=== PATIENT | female | born 1960 | race American Indian/Alaskan Native ===

== ENCOUNTER 2023-07-19 14:20 | Inpatient (IN) | payer MEDICAID ==
[~2023-07-19] VITALS: Ht 162.6 cm; Wt 92.0 kg
[2023-07-19] MEDS: normal saline 1000ML IV soln IV ONE (14:40)
[2023-07-19] MEDS: diltiazem 5mg/ml 5ml inj. IV ONE ×2 (15:26→16:04)
[2023-07-19] MEDS: metoclopramide 5 mg/ml inj IV ONE (15:40)
[2023-07-19] MEDS: normal saline 500ml IV soln 500 ML IV ONE (15:48)
[2023-07-19] MEDS: dextrose 50%-water 50ml dispensing syringe IV ONE (16:02)
[2023-07-19] MEDS: diltiazem-NS 100mg/100ml 100 ML IV SCH (16:03)
[2023-07-19 17:00] LABS: BASOPHILS % (AUTO) 0.3 % (0-1); EOSINOPHILS % (AUTO) 0.1 % (0-6); HEMATOCRIT 33.2 % (35.0-45.0); HEMOGLOBIN 10.7 g/dl (12.0-16.0); LYMPHOCYTES # (AUTO) 1.4 X10'3 (1.1-4.8); MEAN CORPUSCULAR HEMOGLOBIN 31.7 PG (27.0-31.0); MEAN CORPUSCULAR HGB CONC 32.3 g/dL (33.0-36.5); MEAN CORPUSCULAR VOLUME 98.3 FL (78-98); MEAN PLATELET VOLUME 7.9 FL (7.4-10.4); MONOCYTES # (AUTO) 0.3 X10'3 (0-0.9); MONOCYTES % (AUTO) 4.8 % (2-12); NEUTROPHILS # (AUTO) 4.1 X10'3 (1.8-7.7); NEUTROPHILS % (AUTO) 70.8 % (42-75); PLATELET COUNT 143 X10'3 (140-440); RED BLOOD COUNT 3.38 X10'6 (4.20-5.60); RED CELL DISTRIBUTION WIDTH 17.6 % (11.5-14.5); WHITE BLOOD COUNT 5.7 X10'3 (4.5-11.0)
[2023-07-19 17:18] LABS: ANION GAP 11 (8-16); BLOOD UREA NITROGEN 43 MG/DL (7-18); BUN/CREATININE RATIO 17.1 (10.0-20.0); CALCIUM 7.5 MG/DL (8.5-10.1); CHLORIDE 116 MMOL/L (99-107); CREATININE 2.51 MG/DL (0.40-0.90); GLUCOSE 118 MG/DL (70-104); POTASSIUM 3.1 MMOL/L (3.5-5.1); SODIUM 149 MMOL/L (135-145); TOTAL CARBON DIOXIDE 22.1 MMOL/L (24-32); eCRCL 20 ML/MIN; eGFR 19 ML/MIN
[2023-07-19 19:06] LABS: PRO BRAIN NATRIURETIC PEPTIDE > 30000 PG/ML (0-125)
[2023-07-19] MEDS: normal saline 1000ML IV soln IVB ONE (19:17)
[2023-07-19] MEDS: dextrose 5%-1/2 normal saline 1,000 ML IV ONE (19:19)
[2023-07-19] MEDS ORDERED: mag hydrox/Alum hydrox/simeth 30ml oral suspension PO PRN (19:25)
[2023-07-19] MEDS: furosemide 10 MG/1 ML 10ml inj IV ONE (19:25)
[2023-07-19] MEDS ORDERED: magnesium hydroxide 30ml (MOM) UD suspension PO PRN (19:25)
[2023-07-19] MEDS ORDERED: acetaminophen 325mg tablet PO PRN ×2 (19:25)
[2023-07-19] MEDS: docusate sod 100mg capsule PO SCH (20:00)
[2023-07-19] MEDS: vancomycin/NS 1 GM ADD-VANTAGE 250 ML IV ONE (20:45)
[2023-07-19] MEDS: Dextrose 10%-water IV solution 1,000 ML IV SCH (21:06)
[2023-07-19 21:20] LABS: BILIRUBIN,URINE SMALL (Neg); CLARITY,URINE CLOUDY (Clear); COLOR,URINE YELLOW (Yellow); GLUCOSE, URINE NEGATIVE (Neg); KETONES,URINE TRACE mg/dl (Neg); LEUKOCYTE ESTERASE ,URINE LARGE (Neg); NITRITES, URINE NEGATIVE (Neg); OCCULT BLOOD,URINE MODERATE (Neg); PROTEIN,URINE 100 mg/dl (Neg); UROBILINOGEN,URINE 0.2 E.U/dL (0.2-1.0)
[2023-07-19] MEDS: VANCOMYCIN 750MG IV in NS 250 ML IV ONE (21:20)
[2023-07-19 21:26] LABS: UA COLLECTION TYPE FOLEY CATH
[2023-07-19 21:27] LABS: BACTERIA,URINE 4+ /HPF (Neg); MUCUS STRANDS FEW /LPF (Neg); RBC,URINE 50-100 /HPF (0-2); SQUAMOUS EPITHELIAL CELL,UR FEW /LPF (FEW); WBC,URINE TNTC /HPF (0-4)
[2023-07-19] MEDS: morphine 2 MG/ML inj. syringe IV PRN (21:36)
[2023-07-19] MEDS: ondansetron/PF 4mg/2ml inj IV PRN (23:56)
[2023-07-20] MEDS: potassium Cl 40MEQ/1/2NS 520ml 520 ML IV ONE (02:25)
[2023-07-20] MEDS: metoclopramide 5 mg/ml inj IV ONE (03:06)
[2023-07-20] MEDS: diatr meglu/diatrizoate 30ml oral sol.-(3 dose) bottle PO SCH (03:37)
[2023-07-20] MEDS: pantoprazole 40 MG vial IV SCH (07:30)
[2023-07-20 08:00] VITALS: RESP 18; O2SAT 97
[2023-07-20] MEDS: dexamethasone 4mg/ml inj IV SCH (08:00)
[2023-07-20] MEDS: meropenem inj 500 MG in normal saline 100ml IV soln 100 ML IV SCH (08:00)
[2023-07-20 08:18] LABS: BASOPHILS % (AUTO) 0.3 % (0-1); EOSINOPHILS % (AUTO) 0.2 % (0-6); HEMATOCRIT 30.2 % (35.0-45.0); HEMOGLOBIN 9.8 g/dl (12.0-16.0); LYMPHOCYTES % (AUTO) 30.3 % (21-51); MEAN CORPUSCULAR HEMOGLOBIN 31.7 PG (27.0-31.0); MEAN CORPUSCULAR HGB CONC 32.4 g/dL (33.0-36.5); MEAN PLATELET VOLUME 7.8 FL (7.4-10.4); MONOCYTES # (AUTO) 0.4 X10'3 (0-0.9); MONOCYTES % (AUTO) 6.1 % (2-12); NEUTROPHILS # (AUTO) 4.1 X10'3 (1.8-7.7); NEUTROPHILS % (AUTO) 63.1 % (42-75); PLATELET COUNT 134 X10'3 (140-440); RED BLOOD COUNT 3.09 X10'6 (4.20-5.60); RED CELL DISTRIBUTION WIDTH 17.5 % (11.5-14.5); WHITE BLOOD COUNT 6.6 X10'3 (4.5-11.0)
[2023-07-20 09:05] LABS: ANION GAP 12 (8-16); BLOOD UREA NITROGEN 42 MG/DL (7-18); BUN/CREATININE RATIO 16.5 (10.0-20.0); CALCIUM 7.3 MG/DL (8.5-10.1); CHLORIDE 115 MMOL/L (99-107); CREATININE 2.55 MG/DL (0.40-0.90); GLUCOSE 126 MG/DL (70-104); POTASSIUM 3.1 MMOL/L (3.5-5.1); SODIUM 145 MMOL/L (135-145); TOTAL CARBON DIOXIDE 18.5 MMOL/L (24-32); eCRCL 19 ML/MIN; eGFR 19 ML/MIN
[2023-07-20 09:40] VITALS: BP 110/50; PULSE 110; RESP 17; TEMP 98.1; O2SAT 97
[2023-07-20] MEDS: dextrose 5%-normal saline 1,000 ML IV SCH (11:55)
[2023-07-20] MEDS ORDERED: magnesium Cl slow-release 64mg tablet PO PRN (14:30)
[2023-07-20] MEDS ORDERED: potassium Cl 20 mEq SR tablet PO PRN (14:30)
[2023-07-20 15:00] VITALS: BP 102/53; PULSE 114; RESP 12; TEMP 98.6; O2SAT 98
[2023-07-20] MEDS: morphine 2 MG/ML inj. syringe IV PRN (15:28)
[2023-07-20 16:19] LABS: HEMOGLOBIN A1C 4.9 % (4.5-6.2)
[2023-07-20 18:00] VITALS: BP 106/66; PULSE 88; RESP 15; TEMP 98.4; O2SAT 96
[2023-07-20] MEDS: K and/or MAG REPLACEMENT MC SCH (20:00)
[2023-07-20] MEDS: furosemide 20 MG/2 ML vial IV SCH (20:52)
[2023-07-20] MEDS: vancomycin inj 500 MG in normal saline 100ml IV soln 100 ML IV SCH (21:44)
[2023-07-20 22:00] VITALS: BP 122/53; PULSE 91; RESP 11; TEMP 98.4; O2SAT 96
[2023-07-21] VITALS (7 sets, daily range): BP systolic 85–112; BP diastolic 45–58; PULSE 89–114; RESP 16–18; TEMP 97.2–98.2; O2SAT 93–99
[2023-07-21 05:04] LABS: LYMPHOCYTES # (AUTO) 1.4 X10'3 (1.1-4.8); MONOCYTES # (AUTO) 0.3 X10'3 (0-0.9); MONOCYTES % (AUTO) 5.7 % (2-12); RED BLOOD COUNT 2.76 X10'6 (4.20-5.60); WHITE BLOOD COUNT 5.6 X10'3 (4.5-11.0)
[2023-07-21 05:06] LABS: BASOPHILS % (AUTO) 0.2 % (0-1); EOSINOPHILS % (AUTO) 0.1 % (0-6); HEMATOCRIT 26.8 % (35.0-45.0); HEMOGLOBIN 8.8 g/dl (12.0-16.0); LYMPHOCYTES % (AUTO) 25.6 % (21-51); MEAN CORPUSCULAR HEMOGLOBIN 31.7 PG (27.0-31.0); MEAN CORPUSCULAR HGB CONC 32.7 g/dL (33.0-36.5); MEAN CORPUSCULAR VOLUME 97.1 FL (78-98); MEAN PLATELET VOLUME 7.9 FL (7.4-10.4); NEUTROPHILS # (AUTO) 3.8 X10'3 (1.8-7.7); NEUTROPHILS % (AUTO) 68.4 % (42-75); PLATELET COUNT 127 X10'3 (140-440); RED CELL DISTRIBUTION WIDTH 17.7 % (11.5-14.5)
[2023-07-21 05:39] LABS: ALBUMIN 0.8 G/DL (3.4-5.0); ANION GAP 11 (8-16); BLOOD UREA NITROGEN 41 MG/DL (7-18); BUN/CREATININE RATIO 15.8 (10.0-20.0); CALCIUM 6.6 MG/DL (8.5-10.1); CHLORIDE 114 MMOL/L (99-107); CREATININE 2.59 MG/DL (0.40-0.90); GLUCOSE 88 MG/DL (70-104); MAGNESIUM 1.1 MG/DL (1.5-2.4); SODIUM 146 MMOL/L (135-145); TOTAL CARBON DIOXIDE 21.2 MMOL/L (24-32); eCRCL 19 ML/MIN; eGFR 19 ML/MIN
[2023-07-21 05:47] LABS: POTASSIUM 2.8 MMOL/L (3.5-5.1)
[2023-07-21] MEDS: pantoprazole 40mg Tablet.DR PO SCH (07:30)
[2023-07-21] MEDS: potassium Cl 40MEQ/1/2NS 520ml 520 ML IV PRN (08:21)
[2023-07-21] MEDS ORDERED: normal saline 1000ml 1,000 ML IV SCH (09:05)
[2023-07-21 09:43] LABS: PLATELET ESTIMATE DECREASED; TOTAL CELLS COUNTED 100; TOXIC GRANULATION 1+
[2023-07-21 09:46] LABS: ANISOCYTOSIS 1+; ELLIPTOCYTES FEW; SMUDGE CELLS 1+; STOMATOCYTES FEW; TARGET CELLS FEW; TEAR DROP CELLS FEW
[2023-07-21] MEDS ORDERED: metoclopramide 5 mg/ml inj IV SCH (10:25)
[2023-07-21] MEDS: metoclopramide 5 mg/ml inj IV SCH (13:28)
[2023-07-21] MEDS: magnesium 4gm in 100ml NS 100 ML IV PRN (13:42)
[2023-07-21] MEDS ORDERED: PANT40TA54 PO (14:20)
[2023-07-21] MEDS ORDERED: GABA-530 PO (14:20)
[2023-07-21] MEDS ORDERED: BUME1TAB8 PO (14:20)
[2023-07-21] MEDS ORDERED: HYDR-3964 PO (14:20)
[2023-07-21] MEDS ORDERED: ROSU10TA28 PO (14:20)
[2023-07-21] MEDS ORDERED: MIDO5TAB4 PO (14:20)
[2023-07-21] MEDS ORDERED: ALLO100T PO (14:20)
[2023-07-21] MEDS ORDERED: SERT-434 PO (14:20)
[2023-07-21] MEDS ORDERED: SUCR1TAB PO (14:20)
[2023-07-21] MEDS ORDERED: HYDR200T73 PO (14:20)
[2023-07-21] MEDS ORDERED: METO5TAB98 PO (14:20)
[2023-07-21] MEDS: magnesium 2GM in 50ml NS 50 ML IV PRN (17:52)
[2023-07-22] VITALS (7 sets, daily range): BP systolic 91–113; BP diastolic 40–54; PULSE 87–118; RESP 12–18; TEMP 97.2–97.7; O2SAT 96–100
[2023-07-22 06:02] LABS: BASOPHILS % (AUTO) 0.1 % (0-1); EOSINOPHILS % (AUTO) 0.1 % (0-6); HEMATOCRIT 26.5 % (35.0-45.0); HEMOGLOBIN 8.6 g/dl (12.0-16.0); LYMPHOCYTES # (AUTO) 1.1 X10'3 (1.1-4.8); LYMPHOCYTES % (AUTO) 22.8 % (21-51); MEAN CORPUSCULAR HEMOGLOBIN 31.6 PG (27.0-31.0); MEAN CORPUSCULAR HGB CONC 32.6 g/dL (33.0-36.5); MEAN CORPUSCULAR VOLUME 96.9 FL (78-98); MEAN PLATELET VOLUME 8.1 FL (7.4-10.4); MONOCYTES # (AUTO) 0.2 X10'3 (0-0.9); MONOCYTES % (AUTO) 4.9 % (2-12); NEUTROPHILS # (AUTO) 3.5 X10'3 (1.8-7.7); NEUTROPHILS % (AUTO) 72.1 % (42-75); PLATELET COUNT 129 X10'3 (140-440); RED BLOOD COUNT 2.73 X10'6 (4.20-5.60); RED CELL DISTRIBUTION WIDTH 17.4 % (11.5-14.5); WHITE BLOOD COUNT 4.8 X10'3 (4.5-11.0)
[2023-07-22 06:15] LABS: ALBUMIN 0.9 G/DL (3.4-5.0); ANION GAP 9 (8-16); BLOOD UREA NITROGEN 41 MG/DL (7-18); BUN/CREATININE RATIO 14.8 (10.0-20.0); CALCIUM 7.2 MG/DL (8.5-10.1); CHLORIDE 117 MMOL/L (99-107); CREATININE 2.77 MG/DL (0.40-0.90); GLUCOSE 65 MG/DL (70-104); MAGNESIUM 2.2 MG/DL (1.5-2.4); POTASSIUM 3.2 MMOL/L (3.5-5.1); SODIUM 147 MMOL/L (135-145); TOTAL CARBON DIOXIDE 21.3 MMOL/L (24-32); eCRCL 18 ML/MIN; eGFR 17 ML/MIN
[2023-07-22] MEDS: potassium Cl 20 mEq SR tablet PO PRN (07:29)
[2023-07-22 11:42] LABS: BILIRUBIN,URINE NEGATIVE (Neg); CLARITY,URINE CLOUDY (Clear); COLOR,URINE YELLOW (Yellow); GLUCOSE, URINE NEGATIVE (Neg); KETONES,URINE NEGATIVE (Neg); LEUKOCYTE ESTERASE ,URINE MODERATE (Neg); NITRITES, URINE NEGATIVE (Neg); OCCULT BLOOD,URINE SMALL (Neg); PH,URINE 5.5 (4.8-8.0); PROTEIN,URINE NEGATIVE (Neg); UROBILINOGEN,URINE 0.2 E.U/dL (0.2-1.0)
[2023-07-22 11:57] LABS: TOTAL PROTEIN,URINE RANDOM 20.6 MG/DL; UA COLLECTION TYPE FOLEY CATH
[2023-07-22 11:59] LABS: MUCUS STRANDS FEW /LPF (Neg); SQUAMOUS EPITHELIAL CELL,UR FEW /LPF (FEW)
[2023-07-22 12:00] LABS: BACTERIA,URINE FEW /HPF (Neg); RBC,URINE 20-50 /HPF (0-2); WBC,URINE TNTC /HPF (0-4); YEAST MANY /HPF (NEGATIVE)
[2023-07-22] MEDS: HYDROcodone/acetaminophen 10/325mg tab PO PRN (12:24)
[2023-07-22 12:42] LABS: UA EOSINOPHILS NO EOS /HPF
[2023-07-22] MEDS: VANCOMYCIN LEVEL IV ONE (20:30)
[2023-07-23] VITALS (7 sets, daily range): BP systolic 85–116; BP diastolic 53–78; PULSE 80–112; RESP 12–19; TEMP 97–97.8; O2SAT 90–99
[2023-07-23 03:04] LABS: BASOPHILS % (AUTO) 0.1 % (0-1); EOSINOPHILS % (AUTO) 0 % (0-6); HEMATOCRIT 25.9 % (35.0-45.0); HEMOGLOBIN 8.7 g/dl (12.0-16.0); LYMPHOCYTES # (AUTO) 1.3 X10'3 (1.1-4.8); LYMPHOCYTES % (AUTO) 20.3 % (21-51); MEAN CORPUSCULAR HEMOGLOBIN 32.6 PG (27.0-31.0); MEAN CORPUSCULAR HGB CONC 33.7 g/dL (33.0-36.5); MEAN CORPUSCULAR VOLUME 96.7 FL (78-98); MEAN PLATELET VOLUME 7.8 FL (7.4-10.4); MONOCYTES # (AUTO) 0.2 X10'3 (0-0.9); MONOCYTES % (AUTO) 3.4 % (2-12); NEUTROPHILS % (AUTO) 76.2 % (42-75); PLATELET COUNT 138 X10'3 (140-440); RED BLOOD COUNT 2.68 X10'6 (4.20-5.60); RED CELL DISTRIBUTION WIDTH 17.1 % (11.5-14.5); WHITE BLOOD COUNT 6.6 X10'3 (4.5-11.0)
[2023-07-23 03:12] LABS: ALBUMIN 0.9 G/DL (3.4-5.0); ANION GAP 7 (8-16); BLOOD UREA NITROGEN 41 MG/DL (7-18); CALCIUM 6.7 MG/DL (8.5-10.1); CHLORIDE 115 MMOL/L (99-107); CREATININE 2.92 MG/DL (0.40-0.90); GLUCOSE 60 MG/DL (70-104); POTASSIUM 4.1 MMOL/L (3.5-5.1); SODIUM 143 MMOL/L (135-145); eCRCL 17 ML/MIN; eGFR 16 ML/MIN
[2023-07-23] MEDS: metoclopramide 5 mg/ml inj IV SCH (20:48)
[2023-07-23] MEDS: diatr meglu/diatrizoate 30ml oral sol.-(3 dose) bottle PO SCH (22:27)
[2023-07-24 02:00] VITALS: BP 98/56; PULSE 118; RESP 16; TEMP 97.1; O2SAT 100
[2023-07-24 05:09] LABS: RED CELL DISTRIBUTION WIDTH 17.5 % (11.5-14.5)
[2023-07-24 05:10] LABS: ANION GAP 7 (8-16); BASOPHILS % (AUTO) 0.1 % (0-1); BLOOD UREA NITROGEN 40 MG/DL (7-18); BUN/CREATININE RATIO 13.3 (10.0-20.0); CHLORIDE 114 MMOL/L (99-107); CREATININE 3.01 MG/DL (0.40-0.90); EOSINOPHILS % (AUTO) 0.5 % (0-6); HEMATOCRIT 27.5 % (35.0-45.0); LYMPHOCYTES % (AUTO) 25.9 % (21-51); MEAN CORPUSCULAR HEMOGLOBIN 31.7 PG (27.0-31.0); MEAN CORPUSCULAR HGB CONC 32.6 g/dL (33.0-36.5); MEAN CORPUSCULAR VOLUME 97.3 FL (78-98); MEAN PLATELET VOLUME 7.9 FL (7.4-10.4); MONOCYTES # (AUTO) 0.3 X10'3 (0-0.9); MONOCYTES % (AUTO) 3.5 % (2-12); NEUTROPHILS # (AUTO) 5.4 X10'3 (1.8-7.7); PLATELET COUNT 154 X10'3 (140-440); RED BLOOD COUNT 2.83 X10'6 (4.20-5.60); SODIUM 143 MMOL/L (135-145); TOTAL CARBON DIOXIDE 22.4 MMOL/L (24-32); WHITE BLOOD COUNT 7.7 X10'3 (4.5-11.0); eCRCL 16 ML/MIN; eGFR 16 ML/MIN
[2023-07-24 05:46] LABS: GLUCOSE 46 MG/DL (70-104)
[2023-07-24] MEDS ORDERED: DEXTROSE 15 GM of carb/4 tabs (each vial/BOTTLE has 4 tablets) PO PRN ×2 (05:55)
[2023-07-24] MEDS ORDERED: glucagon, human recombinant 1mg kit SUBCUT PRN (05:55)
[2023-07-24] MEDS: dextrose 50%-water 50ml dispensing syringe IV PRN ×2 (06:34→14:41)
[2023-07-24] MEDS: normal saline 1000ml 1,000 ML IV SCH (06:45)
[2023-07-24 07:00] VITALS: BP 120/40; PULSE 99; RESP 14; TEMP 98.1; O2SAT 94
[2023-07-24 15:00] VITALS: BP 116/50; PULSE 116; RESP 16; TEMP 97.7; O2SAT 97
[2023-07-24] MEDS: dextrose 5%-1/2 normal saline 1,000 ML IV SCH (17:16)
[2023-07-24 18:00] VITALS: BP 140/80; PULSE 80; RESP 16; TEMP 97.8; O2SAT 94
[2023-07-24 22:00] VITALS: BP 140/78; PULSE 78; RESP 16; TEMP 97.8; O2SAT 92
[2023-07-24] MEDS: vancomycin inj 500 MG in normal saline 100ml IV soln 100 ML IV SCH (22:06)
[2023-07-25] VITALS (7 sets, daily range): BP systolic 107–130; BP diastolic 38–89; PULSE 78–115; RESP 9–16; TEMP 97.1–97.8; O2SAT 90–99
[2023-07-25] MEDS ORDERED: glucagon, human recombinant 1mg kit SUBCUT PRN (02:10)
[2023-07-25] MEDS ORDERED: DEXTROSE 15 GM of carb/4 tabs (each vial/BOTTLE has 4 tablets) PO PRN (02:10)
[2023-07-25 06:33] LABS: POTASSIUM 3.6 MMOL/L (3.5-5.1)
[2023-07-25] MEDS: Dakins solution (1/4 strength) 473ml solution TP SCH (08:00)
[2023-07-25 08:12] LABS: BASOPHILS % (AUTO) 0.2 % (0-1); EOSINOPHILS % (AUTO) 0.7 % (0-6); HEMATOCRIT 24.7 % (35.0-45.0); HEMOGLOBIN 7.9 g/dl (12.0-16.0); LYMPHOCYTES # (AUTO) 1.2 X10'3 (1.1-4.8); LYMPHOCYTES % (AUTO) 20.3 % (21-51); MEAN CORPUSCULAR HEMOGLOBIN 31.3 PG (27.0-31.0); MEAN CORPUSCULAR HGB CONC 32.1 g/dL (33.0-36.5); MEAN CORPUSCULAR VOLUME 97.7 FL (78-98); MONOCYTES # (AUTO) 0.2 X10'3 (0-0.9); MONOCYTES % (AUTO) 3.6 % (2-12); NEUTROPHILS # (AUTO) 4.3 X10'3 (1.8-7.7); NEUTROPHILS % (AUTO) 75.2 % (42-75); PLATELET COUNT 115 X10'3 (140-440); RED BLOOD COUNT 2.52 X10'6 (4.20-5.60); RED CELL DISTRIBUTION WIDTH 17.7 % (11.5-14.5); WHITE BLOOD COUNT 5.7 X10'3 (4.5-11.0)
[2023-07-25 08:50] LABS: ALANINE AMINOTRANSFERASE 15 U/L (12-78); ALBUMIN 0.8 G/DL (3.4-5.0); ALBUMIN/GLOBULIN RATIO 0.4 (1.1-1.5); ALKALINE PHOSPHATASE 320 IU/L (46-116); ANION GAP 7 (8-16); ASPARTATE AMINO TRANSFERASE 33 U/L (10-37); BILIRUBIN,TOTAL 0.5 MG/DL (0.1-1.0); BLOOD UREA NITROGEN 35 MG/DL (7-18); BUN/CREATININE RATIO 12.3 (10.0-20.0); CALCIUM 6.5 MG/DL (8.5-10.1); CHLORIDE 114 MMOL/L (99-107); CREATININE 2.85 MG/DL (0.40-0.90); GLUCOSE 184 MG/DL (70-104); MAGNESIUM 1.8 MG/DL (1.5-2.4); PHOSPHORUS 3.6 MG/DL (2.3-4.5); POTASSIUM 3.5 MMOL/L (3.5-5.1); SODIUM 140 MMOL/L (135-145); TOTAL CARBON DIOXIDE 19.2 MMOL/L (24-32); eCRCL 17 ML/MIN; eGFR 17 ML/MIN
[2023-07-25] MEDS: bisacodyl 10mg suppository rectal RC STA (17:53)
[2023-07-25] MEDS: HYDROcodone/acetaminophen 5mg/325mg tablet PO PRN (19:55)
[2023-07-25] MEDS: simethicone 125mg capsule PO SCH (23:27)
[2023-07-26 02:00] VITALS: BP 99/50; PULSE 110; RESP 16; TEMP 97; O2SAT 97
[2023-07-26 06:00] VITALS: BP 94/52; PULSE 105; RESP 12; TEMP 97.7; O2SAT 92
[2023-07-26 06:10] LABS: BASOPHILS % (AUTO) 0.2 % (0-1); EOSINOPHILS # (AUTO) 0.1 X10'3 (0-0.9); EOSINOPHILS % (AUTO) 0.9 % (0-6); HEMATOCRIT 26.9 % (35.0-45.0); HEMOGLOBIN 8.8 g/dl (12.0-16.0); LYMPHOCYTES # (AUTO) 1.6 X10'3 (1.1-4.8); LYMPHOCYTES % (AUTO) 22.8 % (21-51); MEAN CORPUSCULAR HEMOGLOBIN 31.7 PG (27.0-31.0); MEAN CORPUSCULAR HGB CONC 32.7 g/dL (33.0-36.5); MEAN PLATELET VOLUME 8.2 FL (7.4-10.4); MONOCYTES # (AUTO) 0.3 X10'3 (0-0.9); MONOCYTES % (AUTO) 3.7 % (2-12); NEUTROPHILS # (AUTO) 5.1 X10'3 (1.8-7.7); NEUTROPHILS % (AUTO) 72.4 % (42-75); PLATELET COUNT 114 X10'3 (140-440); RED BLOOD COUNT 2.77 X10'6 (4.20-5.60); RED CELL DISTRIBUTION WIDTH 17.7 % (11.5-14.5)
[2023-07-26 06:32] LABS: ALANINE AMINOTRANSFERASE 14 U/L (12-78); ALBUMIN 0.9 G/DL (3.4-5.0); ALBUMIN/GLOBULIN RATIO 0.3 (1.1-1.5); ALKALINE PHOSPHATASE 428 IU/L (46-116); ANION GAP 11 (8-16); ASPARTATE AMINO TRANSFERASE 47 U/L (10-37); BILIRUBIN,TOTAL 0.6 MG/DL (0.1-1.0); BLOOD UREA NITROGEN 34 MG/DL (7-18); BUN/CREATININE RATIO 12.5 (10.0-20.0); CALCIUM 6.8 MG/DL (8.5-10.1); CHLORIDE 113 MMOL/L (99-107); CREATININE 2.73 MG/DL (0.40-0.90); GLUCOSE 97 MG/DL (70-104); MAGNESIUM 1.7 MG/DL (1.5-2.4); PHOSPHORUS 3.6 MG/DL (2.3-4.5); POTASSIUM 3.7 MMOL/L (3.5-5.1); SODIUM 143 MMOL/L (135-145); TOTAL PROTEIN 3.6 G/DL (6.4-8.2); eCRCL 18 ML/MIN; eGFR 18 ML/MIN
[2023-07-26 15:00] VITALS: BP 102/54; PULSE 83; RESP 12; TEMP 97.9; O2SAT 96
[2023-07-26] MEDS: HYDROcodone/acetaminophen 10/325mg tab PO PRN (16:14)
[2023-07-26 18:00] VITALS: BP 101/47; PULSE 86; RESP 13; TEMP 97.7; O2SAT 96
[2023-07-26 22:00] VITALS: BP 91/49; PULSE 85; RESP 17; TEMP 97.1; O2SAT 94
[2023-07-27 05:58] LABS: BASOPHILS % (AUTO) 0.4 % (0-1); EOSINOPHILS # (AUTO) 0.1 X10'3 (0-0.9); HEMOGLOBIN 8.3 g/dl (12.0-16.0); LYMPHOCYTES # (AUTO) 1.5 X10'3 (1.1-4.8); MEAN CORPUSCULAR HEMOGLOBIN 31.8 PG (27.0-31.0); MEAN CORPUSCULAR VOLUME 96.4 FL (78-98); MEAN PLATELET VOLUME 8.8 FL (7.4-10.4); MONOCYTES # (AUTO) 0.2 X10'3 (0-0.9); MONOCYTES % (AUTO) 2.9 % (2-12); NEUTROPHILS # (AUTO) 3.9 X10'3 (1.8-7.7); NEUTROPHILS % (AUTO) 69.7 % (42-75); PLATELET COUNT 98 X10'3 (140-440); RED CELL DISTRIBUTION WIDTH 17.6 % (11.5-14.5); WHITE BLOOD COUNT 5.6 X10'3 (4.5-11.0)
[2023-07-27 06:20] LABS: ALANINE AMINOTRANSFERASE 15 U/L (12-78); ALBUMIN 0.8 G/DL (3.4-5.0); ALBUMIN/GLOBULIN RATIO 0.3 (1.1-1.5); ALKALINE PHOSPHATASE 469 IU/L (46-116); ANION GAP 12 (8-16); ASPARTATE AMINO TRANSFERASE 42 U/L (10-37); BILIRUBIN,TOTAL 0.5 MG/DL (0.1-1.0); BLOOD UREA NITROGEN 31 MG/DL (7-18); BUN/CREATININE RATIO 11.5 (10.0-20.0); CALCIUM 6.8 MG/DL (8.5-10.1); CHLORIDE 113 MMOL/L (99-107); CREATININE 2.69 MG/DL (0.40-0.90); GLUCOSE 81 MG/DL (70-104); MAGNESIUM 1.6 MG/DL (1.5-2.4); PHOSPHORUS 3.7 MG/DL (2.3-4.5); POTASSIUM 3.6 MMOL/L (3.5-5.1); SODIUM 142 MMOL/L (135-145); TOTAL CARBON DIOXIDE 17.4 MMOL/L (24-32); TOTAL PROTEIN 3.1 G/DL (6.4-8.2); eCRCL 18 ML/MIN; eGFR 18 ML/MIN
[2023-07-27 07:00] VITALS: BP 96/55; PULSE 82; RESP 17; TEMP 98; O2SAT 99
[2023-07-27 08:00] VITALS: RESP 18; O2SAT 94
[2023-07-27 10:00] VITALS: BP 108/55; PULSE 85; RESP 17; TEMP 97.4; O2SAT 99
[2023-07-27 11:19] LABS: IRON 34 UG/DL (49-151)
[2023-07-27 11:44] LABS: FERRITIN 1718 NG/ML (8-252)
[2023-07-27] MEDS: EPOETIN ALFA-EPBX 20,000 UNIT/ML 1 ML MDV SQ ONE (12:13)
[2023-07-27 12:16] LABS: % IRON SATURATION 142 % (11-46); TOTAL IRON BINDING CAPACITY 24 UG/DL (259-388)
[2023-07-27] MEDS: lactose-reduced food (Ensure Enlive) - 237ml bottle PO SCH (13:46)
[2023-07-27 15:00] VITALS: BP 108/55; PULSE 107; RESP 18; TEMP 98.2; O2SAT 96
[2023-07-27 20:00] VITALS: BP 109/57; PULSE 111; RESP 18; RESP 20; TEMP 97; O2SAT 92; O2SAT 93
[2023-07-27 22:57] VITALS: BP 118/61; PULSE 110; RESP 18; TEMP 97.2; O2SAT 94
[2023-07-28] VITALS (10 sets, daily range): BP systolic 78–105; BP diastolic 45–63; PULSE 88–120; RESP 12–20; TEMP 97–98.7; O2SAT 93–99
[2023-07-28] MEDS: dextrose 50%-water 50ml dispensing syringe IV PRN ×2 (00:24→07:39)
[2023-07-28] MEDS: normal saline 1000ml 1,000 ML IV SCH (02:13)
[2023-07-28 05:58] LABS: BASOPHILS % (AUTO) 0.5 % (0-1); EOSINOPHILS # (AUTO) 0.1 X10'3 (0-0.9); EOSINOPHILS % (AUTO) 1.2 % (0-6); HEMATOCRIT 23.5 % (35.0-45.0); HEMOGLOBIN 7.7 g/dl (12.0-16.0); LYMPHOCYTES # (AUTO) 1.8 X10'3 (1.1-4.8); LYMPHOCYTES % (AUTO) 35.1 % (21-51); MEAN CORPUSCULAR HEMOGLOBIN 31.6 PG (27.0-31.0); MEAN CORPUSCULAR HGB CONC 32.7 g/dL (33.0-36.5); MEAN CORPUSCULAR VOLUME 96.7 FL (78-98); MEAN PLATELET VOLUME 8.3 FL (7.4-10.4); MONOCYTES # (AUTO) 0.2 X10'3 (0-0.9); MONOCYTES % (AUTO) 3.2 % (2-12); PLATELET COUNT 84 X10'3 (140-440); RED BLOOD COUNT 2.43 X10'6 (4.20-5.60); RED CELL DISTRIBUTION WIDTH 17.6 % (11.5-14.5)
[2023-07-28 06:33] LABS: ALANINE AMINOTRANSFERASE 8 U/L (12-78); ALBUMIN 0.7 G/DL (3.4-5.0); ALBUMIN/GLOBULIN RATIO 0.3 (1.1-1.5); ALKALINE PHOSPHATASE 548 IU/L (46-116); ANION GAP 8 (8-16); ASPARTATE AMINO TRANSFERASE 39 U/L (10-37); BILIRUBIN,TOTAL 0.7 MG/DL (0.1-1.0); BLOOD UREA NITROGEN 29 MG/DL (7-18); CALCIUM 6.6 MG/DL (8.5-10.1); CHLORIDE 112 MMOL/L (99-107); CREATININE 2.64 MG/DL (0.40-0.90); GLUCOSE 65 MG/DL (70-104); MAGNESIUM 1.4 MG/DL (1.5-2.4); PHOSPHORUS 3.3 MG/DL (2.3-4.5); POTASSIUM 3.6 MMOL/L (3.5-5.1); SODIUM 139 MMOL/L (135-145); TOTAL CARBON DIOXIDE 19.2 MMOL/L (24-32); TOTAL PROTEIN 3.1 G/DL (6.4-8.2); eCRCL 19 ML/MIN; eGFR 18 ML/MIN
[2023-07-28] MEDS ORDERED: magnesium 4gm in 100ml NS 100 ML IV PRN (09:35)
[2023-07-28] MEDS ORDERED: potassium Cl 20 mEq SR tablet PO PRN ×2 (09:35)
[2023-07-28] MEDS ORDERED: magnesium 2GM in 50ml NS 50 ML IV PRN (09:35)
[2023-07-28] MEDS ORDERED: potassium Cl 40MEQ/1/2NS 520ml 520 ML IV PRN (09:35)
[2023-07-28] MEDS: magnesium Cl slow-release 64mg tablet PO PRN (09:55)
[2023-07-28] MEDS ORDERED: DEXTROSE 20% IN WATER 500mL 500 ML IV SCH (12:40)
[2023-07-28] MEDS: NUT.TX.IMP.RENAL FXN,LAC-REDUC (Nepro) 237 ML VANILLA PO SCH (13:00)
[2023-07-28] MEDS: K and/or MAG REPLACEMENT MC SCH (21:17)
[2023-07-29] VITALS (12 sets, daily range): BP systolic 89–132; BP diastolic 46–64; PULSE 81–107; RESP 1–20; TEMP 97.3–98.7; O2SAT 93–100
[2023-07-29] MEDS: dextrose 5%-water 1,000 ML IV SCH (04:58)
[2023-07-29 06:24] LABS: LYMPHOCYTES # (AUTO) 1.5 X10'3 (1.1-4.8); LYMPHOCYTES % (AUTO) 33.5 % (21-51); MEAN CORPUSCULAR VOLUME 96.6 FL (78-98); MONOCYTES # (AUTO) 0.2 X10'3 (0-0.9); NEUTROPHILS # (AUTO) 2.8 X10'3 (1.8-7.7); PLATELET COUNT 63 X10'3 (140-440); RED BLOOD COUNT 2.18 X10'6 (4.20-5.60)
[2023-07-29 06:28] LABS: BASOPHILS % (AUTO) 0.3 % (0-1); MEAN CORPUSCULAR HEMOGLOBIN 31.5 PG (27.0-31.0); MEAN CORPUSCULAR HGB CONC 32.6 g/dL (33.0-36.5); MEAN PLATELET VOLUME 8.6 FL (7.4-10.4); NEUTROPHILS % (AUTO) 61.2 % (42-75); RED CELL DISTRIBUTION WIDTH 17.4 % (11.5-14.5); WHITE BLOOD COUNT 4.5 X10'3 (4.5-11.0)
[2023-07-29 06:46] LABS: ALANINE AMINOTRANSFERASE 6 U/L (12-78); ALBUMIN 0.7 G/DL (3.4-5.0); ALBUMIN/GLOBULIN RATIO 0.3 (1.1-1.5); ALKALINE PHOSPHATASE 546 IU/L (46-116); ANION GAP 8 (8-16); ASPARTATE AMINO TRANSFERASE 26 U/L (10-37); BILIRUBIN,TOTAL 0.6 MG/DL (0.1-1.0); BLOOD UREA NITROGEN 28 MG/DL (7-18); BUN/CREATININE RATIO 11.2 (10.0-20.0); CALCIUM 6.5 MG/DL (8.5-10.1); CHLORIDE 111 MMOL/L (99-107); CREATININE 2.49 MG/DL (0.40-0.90); GLUCOSE 75 MG/DL (70-104); MAGNESIUM 1.4 MG/DL (1.5-2.4); PHOSPHORUS 3.2 MG/DL (2.3-4.5); POTASSIUM 3.5 MMOL/L (3.5-5.1); SODIUM 138 MMOL/L (135-145); eCRCL 20 ML/MIN; eGFR 19 ML/MIN
[2023-07-29 07:39] LABS: HEMOGLOBIN 6.9 g/dl (12.0-16.0)
[2023-07-29] MEDS: midodrine 5mg tablet PO SCH (20:32)
[2023-07-29 20:42] LABS: BASOPHILS % (AUTO) 0.3 % (0-1); EOSINOPHILS % (AUTO) 0.6 % (0-6); HEMATOCRIT 28.1 % (35.0-45.0); HEMOGLOBIN 9.3 g/dl (12.0-16.0); LYMPHOCYTES # (AUTO) 1.7 X10'3 (1.1-4.8); LYMPHOCYTES % (AUTO) 32.2 % (21-51); MEAN CORPUSCULAR HEMOGLOBIN 30.6 PG (27.0-31.0); MEAN CORPUSCULAR HGB CONC 32.9 g/dL (33.0-36.5); MEAN CORPUSCULAR VOLUME 93.1 FL (78-98); MEAN PLATELET VOLUME 8.8 FL (7.4-10.4); MONOCYTES # (AUTO) 0.2 X10'3 (0-0.9); MONOCYTES % (AUTO) 3.8 % (2-12); NEUTROPHILS # (AUTO) 3.2 X10'3 (1.8-7.7); NEUTROPHILS % (AUTO) 63.1 % (42-75); PLATELET COUNT 55 X10'3 (140-440); RED BLOOD COUNT 3.02 X10'6 (4.20-5.60); RED CELL DISTRIBUTION WIDTH 18.3 % (11.5-14.5); WHITE BLOOD COUNT 5.1 X10'3 (4.5-11.0)
[2023-07-30] VITALS (11 sets, daily range): BP systolic 92–177; BP diastolic 53–77; PULSE 62–104; RESP 16–22; TEMP 97.4–98.4; O2SAT 91–99
[2023-07-30 03:54] LABS: BASOPHILS % (AUTO) 0.5 % (0-1); EOSINOPHILS % (AUTO) 0.7 % (0-6); HEMATOCRIT 25.9 % (35.0-45.0); HEMOGLOBIN 8.6 g/dl (12.0-16.0); LYMPHOCYTES # (AUTO) 1.6 X10'3 (1.1-4.8); LYMPHOCYTES % (AUTO) 31.6 % (21-51); MEAN CORPUSCULAR HEMOGLOBIN 30.9 PG (27.0-31.0); MEAN CORPUSCULAR HGB CONC 33.2 g/dL (33.0-36.5); MEAN CORPUSCULAR VOLUME 92.8 FL (78-98); MEAN PLATELET VOLUME 8.7 FL (7.4-10.4); MONOCYTES # (AUTO) 0.2 X10'3 (0-0.9); MONOCYTES % (AUTO) 3.6 % (2-12); NEUTROPHILS # (AUTO) 3.3 X10'3 (1.8-7.7); NEUTROPHILS % (AUTO) 63.6 % (42-75); PLATELET COUNT 52 X10'3 (140-440); RED BLOOD COUNT 2.79 X10'6 (4.20-5.60); WHITE BLOOD COUNT 5.2 X10'3 (4.5-11.0)
[2023-07-30 04:04] LABS: ALANINE AMINOTRANSFERASE 8 U/L (12-78); ALBUMIN 0.7 G/DL (3.4-5.0); ALBUMIN/GLOBULIN RATIO 0.3 (1.1-1.5); ALKALINE PHOSPHATASE 531 IU/L (46-116); ANION GAP 8 (8-16); ASPARTATE AMINO TRANSFERASE 26 U/L (10-37); BILIRUBIN,TOTAL 0.8 MG/DL (0.1-1.0); BLOOD UREA NITROGEN 26 MG/DL (7-18); BUN/CREATININE RATIO 11.2 (10.0-20.0); CALCIUM 6.4 MG/DL (8.5-10.1); CHLORIDE 109 MMOL/L (99-107); CREATININE 2.33 MG/DL (0.40-0.90); GLUCOSE 212 MG/DL (70-104); MAGNESIUM 1.5 MG/DL (1.5-2.4); PHOSPHORUS 3.2 MG/DL (2.3-4.5); POTASSIUM 3.6 MMOL/L (3.5-5.1); SODIUM 135 MMOL/L (135-145); TOTAL CARBON DIOXIDE 18.2 MMOL/L (24-32); TOTAL PROTEIN 2.8 G/DL (6.4-8.2); eCRCL 21 ML/MIN; eGFR 21 ML/MIN
[2023-07-30 04:57] LABS: ANISOCYTOSIS 2+; PLATELET ESTIMATE DECREASED
[2023-07-30 05:03] LABS: ACANTHOCYTES FEW; BURR CELLS FEW
[2023-07-30 05:04] LABS: POLYCHROMASIA FEW
[2023-07-30] MEDS: allopurinol 100mg tablet PO SCH (08:00)
[2023-07-30] MEDS ORDERED: MIDAZolam 1 MG/ML 5ML VIAL ONE (17:42)
[2023-07-30] MEDS ORDERED: LIDOcaine 2% Viscous 15ml cup ONE (17:42)
[2023-07-30] MEDS ORDERED: fentaNYL/PF 50MCG/1 ML 2ML syringe ONE (17:42)
[2023-07-30] MEDS ORDERED: VANCOMYCIN LEVEL IV ONE (20:30)
[2023-07-31 02:00] VITALS: BP 95/63; PULSE 99; RESP 18; TEMP 98.4; O2SAT 99
[2023-07-31 05:49] LABS: ALANINE AMINOTRANSFERASE 7 U/L (12-78); ALBUMIN 0.8 G/DL (3.4-5.0); ALBUMIN/GLOBULIN RATIO 0.3 (1.1-1.5); ALKALINE PHOSPHATASE 610 IU/L (46-116); ANION GAP 10 (8-16); ASPARTATE AMINO TRANSFERASE 24 U/L (10-37); BILIRUBIN,TOTAL 0.6 MG/DL (0.1-1.0); BLOOD UREA NITROGEN 28 MG/DL (7-18); BUN/CREATININE RATIO 11.8 (10.0-20.0); CHLORIDE 111 MMOL/L (99-107); CREATININE 2.38 MG/DL (0.40-0.90); GLUCOSE 64 MG/DL (70-104); MAGNESIUM 1.4 MG/DL (1.5-2.4); PHOSPHORUS 3.6 MG/DL (2.3-4.5); POTASSIUM 3.8 MMOL/L (3.5-5.1); SODIUM 138 MMOL/L (135-145); TOTAL CARBON DIOXIDE 17.4 MMOL/L (24-32); TOTAL PROTEIN 3.2 G/DL (6.4-8.2); eCRCL 21 ML/MIN; eGFR 21 ML/MIN
[2023-07-31 06:00] VITALS: BP 104/59; PULSE 125; RESP 18; TEMP 98.1; O2SAT 95
[2023-07-31 06:00] LABS: BASOPHILS % (AUTO) 0.3 % (0-1); EOSINOPHILS % (AUTO) 0.6 % (0-6); HEMATOCRIT 28.6 % (35.0-45.0); HEMOGLOBIN 9.5 g/dl (12.0-16.0); LYMPHOCYTES # (AUTO) 1.8 X10'3 (1.1-4.8); LYMPHOCYTES % (AUTO) 32.2 % (21-51); MEAN CORPUSCULAR HEMOGLOBIN 30.6 PG (27.0-31.0); MEAN CORPUSCULAR HGB CONC 33.1 g/dL (33.0-36.5); MEAN CORPUSCULAR VOLUME 92.6 FL (78-98); MEAN PLATELET VOLUME 9.5 FL (7.4-10.4); MONOCYTES # (AUTO) 0.3 X10'3 (0-0.9); MONOCYTES % (AUTO) 4.5 % (2-12); NEUTROPHILS # (AUTO) 3.5 X10'3 (1.8-7.7); NEUTROPHILS % (AUTO) 62.4 % (42-75); PLATELET COUNT 56 X10'3 (140-440); RED BLOOD COUNT 3.09 X10'6 (4.20-5.60); RED CELL DISTRIBUTION WIDTH 18.9 % (11.5-14.5); WHITE BLOOD COUNT 5.7 X10'3 (4.5-11.0)
[2023-07-31 08:00] VITALS: RESP 16; O2SAT 94
[2023-07-31] MEDS: DEXTROSE 15 GM of carb/4 tabs (each vial/BOTTLE has 4 tablets) PO PRN (08:19)
[2023-07-31] MEDS: metoclopramide 5 mg/ml inj IV SCH (13:55)
[2023-07-31 15:00] VITALS: BP 140/60; PULSE 88; RESP 20; TEMP 98.1; O2SAT 96
[2023-07-31 18:00] VITALS: BP 99/41; PULSE 80; RESP 20; TEMP 97.8; O2SAT 94
[2023-07-31 22:00] VITALS: BP 101/46; PULSE 80; RESP 18; TEMP 97.8; O2SAT 94
[2023-08-01 02:00] VITALS: BP 90/47; PULSE 82; RESP 19; TEMP 97.8; O2SAT 94
[2023-08-01 04:57] LABS: BASOPHILS % (AUTO) 0.3 % (0-1); EOSINOPHILS % (AUTO) 0.3 % (0-6); HEMATOCRIT 24.9 % (35.0-45.0); HEMOGLOBIN 8.3 g/dl (12.0-16.0); LYMPHOCYTES # (AUTO) 1.6 X10'3 (1.1-4.8); LYMPHOCYTES % (AUTO) 31.2 % (21-51); MEAN CORPUSCULAR HEMOGLOBIN 30.7 PG (27.0-31.0); MEAN CORPUSCULAR HGB CONC 33.2 g/dL (33.0-36.5); MEAN CORPUSCULAR VOLUME 92.7 FL (78-98); MONOCYTES # (AUTO) 0.3 X10'3 (0-0.9); MONOCYTES % (AUTO) 5.9 % (2-12); NEUTROPHILS # (AUTO) 3.1 X10'3 (1.8-7.7); NEUTROPHILS % (AUTO) 62.3 % (42-75); PLATELET COUNT 64 X10'3 (140-440); RED BLOOD COUNT 2.69 X10'6 (4.20-5.60); RED CELL DISTRIBUTION WIDTH 18.8 % (11.5-14.5)
[2023-08-01 05:11] LABS: ALANINE AMINOTRANSFERASE 9 U/L (12-78); ALBUMIN 0.8 G/DL (3.4-5.0); ALBUMIN/GLOBULIN RATIO 0.3 (1.1-1.5); ALKALINE PHOSPHATASE 578 IU/L (46-116); ANION GAP 10 (8-16); ASPARTATE AMINO TRANSFERASE 23 U/L (10-37); BILIRUBIN,TOTAL 0.6 MG/DL (0.1-1.0); BLOOD UREA NITROGEN 30 MG/DL (7-18); BUN/CREATININE RATIO 12.8 (10.0-20.0); CALCIUM 7.1 MG/DL (8.5-10.1); CHLORIDE 111 MMOL/L (99-107); CREATININE 2.35 MG/DL (0.40-0.90); GLUCOSE 62 MG/DL (70-104); MAGNESIUM 1.6 MG/DL (1.5-2.4); PHOSPHORUS 3.6 MG/DL (2.3-4.5); POTASSIUM 3.6 MMOL/L (3.5-5.1); SODIUM 139 MMOL/L (135-145); TOTAL CARBON DIOXIDE 17.8 MMOL/L (24-32); TOTAL PROTEIN 3.2 G/DL (6.4-8.2); eCRCL 21 ML/MIN; eGFR 21 ML/MIN
[2023-08-01] MEDS: ALPRAZolam 0.25mg tablet PO ONE (11:31)
[2023-08-01] MEDS ORDERED: magnesium 2GM in 50ml NS 50 ML IV PRN (13:05)
[2023-08-01] MEDS ORDERED: potassium Cl 40MEQ/1/2NS 520ml 520 ML IV PRN ×2 (13:05)
[2023-08-01] MEDS ORDERED: sodium phosphate inj. 30 MMOL in dextrose 5%-water 250 ML IV PRN (13:05)
[2023-08-01] MEDS ORDERED: sodium phosphate inj. 15 MMOL in dextrose 5%-water 250 ML IV PRN (13:05)
[2023-08-01] MEDS ORDERED: magnesium 4gm in 100ml NS 100 ML IV PRN (13:05)
[2023-08-01] MEDS ORDERED: potassium Cl 20 mEq SR tablet PO PRN ×2 (13:05)
[2023-08-01] MEDS ORDERED: magnesium Cl slow-release 64mg tablet PO PRN (13:05)
[2023-08-01] MEDS ORDERED: Dextrose 10%-water IV solution 1,000 ML IV PRN (13:05)
[2023-08-01] MEDS ORDERED: Neutra Phos packet PO PRN (13:05)
[2023-08-01 13:28] LABS: ALANINE AMINOTRANSFERASE 7 U/L (12-78); ALBUMIN 0.8 G/DL (3.4-5.0); ALBUMIN/GLOBULIN RATIO 0.3 (1.1-1.5); ALKALINE PHOSPHATASE 547 IU/L (46-116); ANION GAP 12 (8-16); ASPARTATE AMINO TRANSFERASE 25 U/L (10-37); BILIRUBIN,TOTAL 0.6 MG/DL (0.1-1.0); BLOOD UREA NITROGEN 29 MG/DL (7-18); BUN/CREATININE RATIO 12.3 (10.0-20.0); CALCIUM 6.5 MG/DL (8.5-10.1); CHLORIDE 111 MMOL/L (99-107); CREATININE 2.35 MG/DL (0.40-0.90); GLUCOSE 68 MG/DL (70-104); MAGNESIUM 1.6 MG/DL (1.5-2.4); PHOSPHORUS 3.3 MG/DL (2.3-4.5); POTASSIUM 3.9 MMOL/L (3.5-5.1); PREALBUMIN 9.7 MG/DL (19-36); SODIUM 139 MMOL/L (135-145); TOTAL CARBON DIOXIDE 16.2 MMOL/L (24-32); TOTAL PROTEIN 3.1 G/DL (6.4-8.2); TRIGLYCERIDES 123 MG/DL (20-135); eCRCL 21 ML/MIN; eGFR 21 ML/MIN
[2023-08-01 15:00] VITALS: BP 92/40; PULSE 85; RESP 12; TEMP 97.5; O2SAT 93
[2023-08-01] MEDS: ZINC/COPPER/MANGANESE/SELENIUM 1 ML, chromic chloride inj. 10 MCG in AA 5%/CALCIUM/LYTE... IV SCH (16:35)
[2023-08-01] MEDS: MVI, adult No.4 with vit. K 10 ML in dextrose 5% water 500ml 500 ML IV SCH (16:36)
[2023-08-01 18:00] VITALS: BP 103/47; PULSE 93; RESP 14; TEMP 97.6; O2SAT 96
[2023-08-01] MEDS: K and/or MAG REPLACEMENT MC SCH (20:00)
[2023-08-01] MEDS: fat emulsion 20% inj. 100 ML IV SCH (20:25)
[2023-08-01 22:00] VITALS: BP 94/47; PULSE 91; RESP 12; TEMP 97.4; O2SAT 97
[2023-08-02 06:00] LABS: ALANINE AMINOTRANSFERASE 7 U/L (12-78); ALBUMIN 0.7 G/DL (3.4-5.0); ALBUMIN/GLOBULIN RATIO 0.3 (1.1-1.5); ALKALINE PHOSPHATASE 514 IU/L (46-116); ANION GAP 9 (8-16); ASPARTATE AMINO TRANSFERASE 17 U/L (10-37); BILIRUBIN,TOTAL 0.5 MG/DL (0.1-1.0); BLOOD UREA NITROGEN 30 MG/DL (7-18); BUN/CREATININE RATIO 12.5 (10.0-20.0); CALCIUM 6.7 MG/DL (8.5-10.1); CHLORIDE 111 MMOL/L (99-107); GLUCOSE 105 MG/DL (70-104); MAGNESIUM 1.4 MG/DL (1.5-2.4); PHOSPHORUS 3.3 MG/DL (2.3-4.5); POTASSIUM 3.7 MMOL/L (3.5-5.1); SODIUM 138 MMOL/L (135-145); TOTAL CARBON DIOXIDE 17.7 MMOL/L (24-32); TOTAL PROTEIN 2.9 G/DL (6.4-8.2); eCRCL 20 ML/MIN; eGFR 20 ML/MIN
[2023-08-02] MEDS ORDERED: ZINC/COPPER/MANGANESE/SELENIUM 1 ML, chromic chloride inj. 10 MCG in AA 5%/CALCIUM/LYTE... IV SCH (06:47)
[2023-08-02] MEDS: levoFLOXACIN-Levaquin 500mg/D5 100 ML IV SCH (07:57)
[2023-08-02 10:16] LABS: HEMOGLOBIN 7.1 g/dl (12.0-16.0); MEAN CORPUSCULAR VOLUME 93.1 FL (78-98)
[2023-08-02 10:17] LABS: BASOPHILS % (AUTO) 0.4 % (0-1); EOSINOPHILS # (AUTO) 0.1 X10'3 (0-0.9); LYMPHOCYTES # (AUTO) 1.5 X10'3 (1.1-4.8); LYMPHOCYTES % (AUTO) 29.9 % (21-51); MEAN CORPUSCULAR HEMOGLOBIN 30.4 PG (27.0-31.0); MEAN CORPUSCULAR HGB CONC 32.6 g/dL (33.0-36.5); MEAN PLATELET VOLUME 9.2 FL (7.4-10.4); MONOCYTES # (AUTO) 0.3 X10'3 (0-0.9); MONOCYTES % (AUTO) 5.9 % (2-12); NEUTROPHILS # (AUTO) 3.1 X10'3 (1.8-7.7); NEUTROPHILS % (AUTO) 62.8 % (42-75); PLATELET COUNT 65 X10'3 (140-440); RED BLOOD COUNT 2.32 X10'6 (4.20-5.60)
[2023-08-02 10:23] LABS: HEMATOCRIT 21.6 % (35.0-45.0)
[2023-08-02 10:38] LABS: ALANINE AMINOTRANSFERASE 9 U/L (12-78); ALBUMIN 0.7 G/DL (3.4-5.0); ALBUMIN/GLOBULIN RATIO 0.3 (1.1-1.5); ALKALINE PHOSPHATASE 516 IU/L (46-116); ANION GAP 8 (8-16); ASPARTATE AMINO TRANSFERASE 19 U/L (10-37); BILIRUBIN,TOTAL 0.5 MG/DL (0.1-1.0); BLOOD UREA NITROGEN 31 MG/DL (7-18); BUN/CREATININE RATIO 13.5 (10.0-20.0); CALCIUM 6.9 MG/DL (8.5-10.1); CHLORIDE 111 MMOL/L (99-107); GLUCOSE 97 MG/DL (70-104); POTASSIUM 3.6 MMOL/L (3.5-5.1); SODIUM 136 MMOL/L (135-145); TOTAL CARBON DIOXIDE 16.8 MMOL/L (24-32); TOTAL PROTEIN 2.9 G/DL (6.4-8.2); eCRCL 21 ML/MIN; eGFR 21 ML/MIN
[2023-08-02 11:00] VITALS: BP 87/50; PULSE 79; RESP 16; TEMP 97.1; O2SAT 97
[2023-08-02 15:00] VITALS: BP 88/48; PULSE 78; RESP 17; TEMP 97.8; O2SAT 94
[2023-08-02] MEDS: ZINC/COPPER/MANGANESE/SELENIUM 1 ML, chromic chloride inj. 10 MCG in AA 5%/CALCIUM/LYTE... IV SCH (15:51)
[2023-08-02 18:14] VITALS: RESP 18
== END 2023-08-02 18:13 | DRG 241 ==
LOC: ER 14:21 → ED HOLD 19:26 → PCU 3S 07-20 07:20
PROVIDERS: ADMIT Internal Medicine; ATTEND Internal Medicine
PROC: 30233N1 Transfusion of Nonautologous Red Blood Cells into Peripheral Vein, Percutaneous Approach (ICD-10-PCS; principal; 2023-07-29)
PROC: 0DB68ZX Excision of Stomach, Via Natural or Artificial Opening Endoscopic, Diagnostic (ICD-10-PCS; 2023-07-30)
DX: K29.70 Gastritis, unspecified, without bleeding (principal); N17.0 Acute kidney failure with tubular necrosis; I50.43 Acute on chronic combined systolic (congestive) and diastolic (congestive) heart failure; E43 Unspecified severe protein-calorie malnutrition; E11.649 Type 2 diabetes mellitus with hypoglycemia without coma; L89.159 Pressure ulcer of sacral region, unspecified stage; D63.8 Anemia in other chronic diseases classified elsewhere; M32.9 Systemic lupus erythematosus, unspecified; M46.28 Osteomyelitis of vertebra, sacral and sacrococcygeal region; I48.0 Paroxysmal atrial fibrillation; E11.22 Type 2 diabetes mellitus with diabetic chronic kidney disease; J44.9 Chronic obstructive pulmonary disease, unspecified; E11.69 Type 2 diabetes mellitus with other specified complication; E03.9 Hypothyroidism, unspecified; Z96.653 Presence of artificial knee joint, bilateral; M06.9 Rheumatoid arthritis, unspecified; I95.1 Orthostatic hypotension; G89.4 Chronic pain syndrome; E83.42 Hypomagnesemia; E87.6 Hypokalemia; N18.30 Chronic kidney disease, stage 3 unspecified; G47.33 Obstructive sleep apnea (adult) (pediatric); N82.8 Other female genital tract fistulae; T50.995A Adverse effect of other drugs, medicaments and biological substances, initial encounter; M10.9 Gout, unspecified; Z88.5 Allergy status to narcotic agent; Z87.891 Personal history of nicotine dependence; Z93.3 Colostomy status; Z68.34 Body mass index [BMI] 34.0-34.9, adult; Y92.89 Other specified places as the place of occurrence of the external cause; Z74.01 Bed confinement status
CPT/HCPCS: 36415; 36430; 43239; 71045; 74176; 76770; 80048; 80053; 80202; 81001; 82570; 82728; 82948; 83036; 83540; 83550; 83605; 83735; 83880; 84100; 84132; 84134; 84145; 84156; 84300; 84478; 84484; 84550; 85007; 85008; 85025; 85651; 86885; 86900; 86901; 86920; 87040; 87077; 87081; 87088; 87186; 87207; 93005; 93306; 93975; 96365; 96375; 99152; 99291; A4314; A4333; A4620; A4649; A6196; A6212; A6213; A6253; A6260; A6402; A6407; A6446; A6449; C9113; G0378; J1100; J1940; J1956; J2185; J2250; J2270; J2405; J2765; J3010; J3370; J3475; J3480; J3490; J7030; J7040; J7042; J7050; J7060; J7070; P9016; Q4081; Q9963